=== PATIENT | female | born 1965 | race Caucasian/White ===

== ENCOUNTER 2018-08-08 23:29 | Emergency (ER) | payer MEDICAID ==
[~2018-08-08] VITALS: Ht 170.2 cm; Wt 62.1 kg
[~2018-08-08 23:29] MED LIST: IBUPROFEN600 MG ORAL; LISINOPRIL5 MG ORAL; NORCO 5-325 TA1 EACH ORAL; PREMPRO 0.3 MG1 EACH PO; SIMVASTATIN20 MG ORAL
[2018-08-08 23:44] VITALS: BP 151/92
[2018-08-08] MEDS ORDERED: HYDROCORTISONE30 G2 TP (23:46)
[2018-08-09 00:06] VITALS: BP 151/92
--- NOTE | 2018-08-09 02:31 | Emergency Room Report ---
History of Present Illness General Chief Complaint: Skin Rash/Abscess Source: Patient Present Illness HPI Patient is a 53-year-old female presented after increased discomfort to her right lower extremity. Patient reportedly had been bitten by an insect. She subsequently noticed increased swelling to the back of her calf. She reports having used hydrocortizone cream without any improvement.The patient reports having increased pain with ambulation. Allergies: Coded Allergies: No Known Allergies (Unverified , 07/06/15) Patient History Past Medical History: see triage record Last Menstrual Period: n/a Now: No : 1 Para: 2 Reviewed Nursing Documentation: PMH: Agreed; PSxH: Agreed Nursing Documentation-PMH Hx Hypertension: Yes - hyperlipidemia Review of Systems All Other Systems: negative except mentioned in HPI Physical Exam Vital Signs Date Time Temp Pulse Resp B/P (MAP) Pulse Ox O2 Delivery O2 Flow Rate FiO2 08/08/18 23:32 97.2 74 15 151/92 95 Room Air 97.2 General Appearance: well appearing, no apparent distress, alert, GCS 15 Head: normocephalic, atraumatic ENT: hearing grossly normal, normal voice Neck: full range of motion, supple Respiratory: no respiratory distress, speaking full sentences Gastrointestinal: normal inspection, normal bowel sounds Musculoskeletal: no calf tenderness Neurologic: normal gait Psychiatric: mood/affect normal Skin: no rash, other - small bite to right calf without erythema or induration Medical Decision Making Diagnostic Impression: Primary Impression: Insect bite ER Course Patient presented for leg swelling. Differential diagnosis included was not limited to staph infection, insect bite, allergic reaction, among others. Patient has a benign exam and does not appear to require any further imaging or laboratory testing at this time. The patient was given prescription for hydrocortisone advised to use [id number] Benadryl if needed for allergic reaction to insect bite which appears to be mild and localized to the calf. There is no evidence of infection at this time.The patient is advised to follow up with primary care doctor in 1-2 days for wound check.. Patient is advised to return if any worsening condition or if any changes in status that are concerning. This report is dictated with [employer] dental technician software which may occasionally lead to discrepancies related to use of this software. Last Vital Signs Date Time Temp Pulse Resp B/P (MAP) Pulse Ox O2 Delivery O2 Flow Rate FiO2 08/09/18 00:06 97.2 72 18 151/92 100 Room Air 97.2 Status: improved Disposition: HOME, SELF-CARE Condition: Improved Scripts Hydrocortisone (Hydrocortisone Cream 2.5%) Y Cream.appl 1 APPLIC TP BID, #15 GM Prov: Quique Hardy MD 08/08/18 Referrals: [facility],REFERRING (PCP) Patient Instructions: Insect Bite, [id number] Quique Hardy MD Aug 09, 2018 02:31
[2018-08-09] MEDS ORDERED: BACITRACIN ZIN1 EACH TOPIC (21:31)
== END 2018-08-08 23:58 | disposition home or self-care (01) ==
LOC: EMR 23:47
DX: S80.861A Insect bite (nonvenomous), right lower leg, initial encounter (principal); R21 Rash and other nonspecific skin eruption; I10 Essential (primary) hypertension; E78.5 Hyperlipidemia, unspecified; W57.XXXA Bitten or stung by nonvenomous insect and other nonvenomous arthropods, initial encounter; Y92.9 Unspecified place or not applicable; Y93.9 Activity, unspecified; Y99.9 Unspecified external cause status
CPT/HCPCS: 99282

== ENCOUNTER 2018-08-09 20:34 | Emergency (ER) | payer MEDICAID ==
[~2018-08-09] VITALS: Ht 170.2 cm; Wt 68.0 kg
[~2018-08-09 20:34] MED LIST changes: +HYDROCORTISONE30 G2 TP
[2018-08-09 20:52] VITALS: BP 171/90
[2018-08-09] MEDS ORDERED: Polysporin Oint 30gm TOPIC SCH (21:30)
[2018-08-09] MEDS ORDERED: BACITRACIN ZIN1 EACH TOPIC (21:31)
[2018-08-09] MEDS ORDERED: Bacitracin Oint UD TOPIC ONE ×2 (21:34→21:45)
--- NOTE | 2018-08-09 21:36 | Emergency Room Report ---
History of Present Illness General Chief Complaint: Skin Rash/Abscess Source: Patient Present Illness HPI This is a 53-year-old female presented after increased the rash to her left ankle. Patient prior history of a recent insect bite. The patient was seen by me yesterday. Patient reports having increased discomfort and swelling. The she was having generalized body aches. She did not have any fever. She denies any headache or neck stiffness. Allergies: Coded Allergies: No Known Allergies (Unverified , 07/06/15) Patient History Past Medical History: see triage record Last Menstrual Period: n/a Reviewed Nursing Documentation: PMH: Agreed; PSxH: Agreed Nursing Documentation-PMH Past Medical History: No History, Except For Hx Hypertension: Yes - hyperlipidemia Review of Systems All Other Systems: negative except mentioned in HPI Physical Exam Vital Signs Date Time Temp Pulse Resp B/P (MAP) Pulse Ox O2 Delivery O2 Flow Rate FiO2 08/09/18 20:48 98.0 80 16 171/90 98 Room Air 98.1 General Appearance: well appearing, no apparent distress, alert, GCS 15 Head: normocephalic, atraumatic ENT: hearing grossly normal, normal voice Neck: full range of motion, supple Respiratory: no respiratory distress, speaking full sentences Gastrointestinal: normal inspection Musculoskeletal: swelling - small patch to left mid calf about 2 cm, no fluctuance Neurologic: normal inspection, alert, oriented x3, normal gait Psychiatric: mood/affect normal Skin: no rash Medical Decision Making Diagnostic Impression: Primary Impression: Insect bite ER Course Patient is a right calf pain. Differential diagnosis included was not limited to saline, abscess, sprain, necrotizing fasciitis among others. Patient has a benign exam and does not appear to require any further imaging or laboratory testing at this time. The patient was noted to have the evidence of some irritation to the area of bite. The there is no palpable cord. There is no fluctuance consistent with abscess. There is minimal erythema which appears to be related to manipulation of the bite. The patient is advised recheck in 2 days. Last Vital Signs Date Time Temp Pulse Resp B/P (MAP) Pulse Ox O2 Delivery O2 Flow Rate FiO2 08/09/18 20:52 98.1 68 16 171/90 98 Room Air 98.1 Status: improved Disposition: HOME, SELF-CARE Condition: Stable Scripts Bacitracin Zinc* (BACITRACIN ZINC*) 1 Each Packet 1 APPLIC TOPIC THREE TIMES A DAY, #20 PACKET Prov: Quique Hardy MD 08/09/18 Patient Instructions: Insect Bite Quique Hardy MD Aug 09, 2018 21:36
[2018-08-09 21:50] VITALS: BP 171/90
== END 2018-08-09 21:50 | disposition home or self-care (01) ==
LOC: EMR 21:28
DX: S90.562A Insect bite (nonvenomous), left ankle, initial encounter (principal); W57.XXXA Bitten or stung by nonvenomous insect and other nonvenomous arthropods, initial encounter; Y93.9 Activity, unspecified; Y92.9 Unspecified place or not applicable; I10 Essential (primary) hypertension; E78.5 Hyperlipidemia, unspecified
CPT/HCPCS: 99282